=== PATIENT | male | born 1960 ===

== ENCOUNTER 2016-11-12 10:48 | Emergency (ER) | payer OTHER ==
[2016-11-12 11:00] VITALS: BMI 29.9
[2016-11-12 11:17] VITALS: BP 131/74; PULSE 64; RESP 18; TEMP 97.3; O2SAT 99
--- NOTE | 2016-11-12 11:41 | C.PDOC ---
History Of Present Illness 56 y/o male presents to the ED for evaluation of bilateral eye pain which began around 1 month ago. Patient describes his symptoms as a "burning" sensation that is worse when he walks outside. He suspects he may be allergic to pollen and dust. He denies fever, chills, vision changes, swelling, or discharge. Time Seen by Provider: 11/12/16 11:28 Chief Complaint (Nursing): Eye Problem History Per: Patient History/Exam Limitations: no limitations Onset/Duration Of Symptoms: Other (1 month ) Current Symptoms Are (Timing): Still Present Quality: "Pain" Associated Symptoms: denies: Decreased Vision, Swelling, Discharge From Eye Additional History Per: Patient Past Medical History Reviewed: Historical Data, Nursing Documentation, Vital Signs Vital Signs: Last Vital Signs Temp 97.3 F L 11/12/16 11:16 Pulse 64 11/12/16 11:16 Resp 18 11/12/16 11:58 BP 131/74 11/12/16 11:16 Pulse Ox 99 11/12/16 14:52 - Medical History PMH: No Chronic Diseases Surgical History: No Surg Hx Family History: States: Unknown Family Hx - Social History Hx Alcohol Use: No Hx Substance Use: No - Immunization History Hx Tetanus Toxoid Vaccination: No Hx Influenza Vaccination: No Hx Pneumococcal Vaccination: No Review Of Systems Except As Marked, All Systems Reviewed And Found Negative. Eyes: Positive for: Pain (b/l ). Negative for: Vision Change Physical Exam - Physical Exam Appears: Non-toxic, No Acute Distress Skin: Normal Color, Warm, Dry Head: Atraumatic, Normacephalic Eye(s): bilateral: PERRL, EOMI, Other (+scant conjunctival injection. eyelid unremarkable. no discharge or visible foreign body ) Oral Mucosa: Moist Neck: Supple Extremity: Normal ROM Neurological/Psych: Normal Speech, Normal Cognition Gait: Steady ED Course And Treatment O2 Sat by Pulse Oximetry: 99 (on RA) Pulse Ox Interpretation: Normal Disposition - Disposition Referrals: Kieran Reyna MD [Staff Provider] - Disposition: HOME/ ROUTINE Disposition Time: 11:36 Condition: GOOD Additional Instructions: Follow up with the Eye doctor within 1-2 days. Return if worsened. Prescriptions: Tobramycin/Dexamethasone [Tobradex St Eye Drops] 1 drop OU TID #1 bot Instructions: Conjunctivitis (ED) - Clinical Impression Clinical Impression: Allergic conjunctivitis - PA / CHILD DEVELOPMENT ASSISTANT / Resident Statement MD/DO has reviewed & agrees with the documentation as recorded. - Scribe Statement The provider has reviewed the documentation as recorded by the Scribe (Madhavi Munoz) All medical record entries made by the Scribe were at my direction and personally dictated by me. I have reviewed the chart and agree that the record accurately reflects my personal performance of the history, physical exam, medical decision making, and the department course for this patient. I have also personally directed, reviewed, and agree with the discharge instructions and disposition.
== END 2016-11-12 11:58 | disposition home or self-care (01) ==
LOC: C.ER 10:48
DX: H10.13 Acute atopic conjunctivitis, bilateral (principal)